=== PATIENT | male | born 1960 | race Caucasian/White ===

== ENCOUNTER 2016-09-02 14:17 | Emergency (ER) | payer BC ==
[~2016-09-02 14:17] MED LIST: Sodium Chloride 0.9% 100 ML BAG ONE
[2016-09-02] MEDS ORDERED: Piperacillin/Tazobactam 4.5 GM VIAL ONE (15:20)
[2016-09-02 15:29] LABS: #Basophils 0.1 thou/uL (0.0-0.2); #Eosinphils 0.1 thou/uL (0.0-0.7); #Lymphocytes 2.1 thou/uL (1.20-3.40); #Neutrophils 9.6 thou/uL (1.40-6.50); %Basophils 0.6 % (0.0-1.0); %Eosinophils 0.6 % (0.0-10.0); %Monocytes 8.2 % (0.0-10.0); %Neutrophils 74.6 % (42.0-75.0); Hemoglobin 13.8 g/dL (14.0-18.0); Mean Corpuscular HGB CONC 33.7 g/dL (32.0-36.0); Mean Corpuscular Hemoglobin 30.7 pg (27.0-31.0); Mean Platelet Volume 9.8 fL (7.4-10.4); Platelet Count 149 thou/uL (130-400); RBC Distribution Width 12.4 % (11.5-14.5); Red Blood Cell (RBC) Count 4.49 mill/uL (4.70-6.10); White Blood Cell (WBC) Count 12.8 thou/uL (4.8-10.8)
--- NOTE | 2016-09-02 15:36 | RAD ---
LEFT HAND THREE VIEWS: History: LEFT hand injury. FINDINGS: Mild osteoarthritic changes are apparent throughout the hand. No acute fracture, dislocation, or ra diopaque foreign bodies are evident. IMPRESSION: Mild osteoarthritic changes LEFT hand. POS: [facility]
[2016-09-02] MEDS ORDERED: Triple Antibiotic Oint 1 GM Packet ONE (16:18)
== END 2016-09-02 16:18 | disposition home or self-care (01) ==
LOC: MADERS 14:17
DX: L03.012 Cellulitis of left finger (principal); L04.9 Acute lymphadenitis, unspecified
CPT/HCPCS: 83605; 85025; 87040; 96365; J2543; J7050

== ENCOUNTER 2016-09-11 09:32 | Outpatient (CLI) | payer BC ==
[2016-09-11 10:08] LABS: ALT (SGPT) 37 U/L (0-55); AST (SGOT) 44 U/L (5-34); Albumin 4.4 g/dL (3.5-5.0); Alkaline Phosphatase 64 U/L (40-150); Anion Gap 14 mmol/L (10-20); BUN (Urea Nitrogen) 24 mg/dL (8.4-25.7); Bilirubin, Total 0.7 mg/dL (0.2-1.2); Calc. Creatinine Clearance 0 mL/min (70-130); Calcium 9.6 mg/dL (7.8-10.44); Carbon Dioxide 28 mmol/L (22-29); Chloride 108 mmol/L (98-107); Cholesterol 178 mg/dL (< 200 Desired); Estimated GFR-MDRD Greater than 90; Globulin 2.3 g/dL (2.4-3.5); Glucose 106 mg/dL (70-105); HDL Cholesterol 59 mg/dL (>60 Neg Risk); LDL Cholesterol, Calculated 109 mg/dL; Protein, Total 6.7 g/dL (6.0-8.3); Sodium 145 mmol/L (136-145); Triglycerides 50 mg/dL (Less than 150)
== END 2016-09-11 09:33 | disposition home or self-care (01) ==
LOC: MADLABBHPM 09:32
PROVIDERS: ATTEND Family Medicine
DX: Z00.00 Encounter for general adult medical examination without abnormal findings (principal)
CPT/HCPCS: 36415; 80053; 80061

== ENCOUNTER 2021-12-03 11:47 | Emergency (ER) | payer BC | END 2021-12-03 13:42 | disposition home or self-care (01) | LOC: MADERS 11:47 | DX: S86.011A Strain of right Achilles tendon, initial encounter (principal); X58.XXXA Exposure to other specified factors, initial encounter ==